=== PATIENT | male | born 1975 | race Caucasian/White ===

== ENCOUNTER → 2021-05-22 | Day surgery (SDC) | payer BC | LOC: MSO 07:01 | DX: Z12.11 Encounter for screening for malignant neoplasm of colon (principal); D12.5 Benign neoplasm of sigmoid colon; K57.30 Diverticulosis of large intestine without perforation or abscess without bleeding; F17.210 Nicotine dependence, cigarettes, uncomplicated | CPT/HCPCS: 00811; J2704; J7120 ==

== ENCOUNTER 2021-09-17 17:00 | Emergency (ER) | payer BC ==
[~2021-09-17] VITALS: Ht 172.7 cm; Wt 125.5 kg
[2021-09-17 17:30] VITALS: BP 105/69
[2021-09-17] MEDS ORDERED: CORTISPORIN OTI10 M2 OT (17:51)
[2021-09-17] MEDS ORDERED: TOPIRAMATE200 MG PO (17:51)
[2021-09-17] MEDS ORDERED: AMOXICILLIN AND1 TA2 PO (17:52)
[2021-09-17] MEDS ORDERED: RIZATRIPTAN BEN10 MG PO (17:52)
[2021-09-17] MEDS ORDERED: PREDNISONE10 MG PO (17:52)
[2021-09-17] MEDS ORDERED: PANTOPRAZOLE SO40 MG PO (17:52)
[2021-09-17] MEDS ORDERED: GLUCOPHAGE PO (17:53)
[2021-09-17] MEDS ORDERED: PRAVASTATIN SOD10 MG PO (17:53)
[2021-09-17] MEDS ORDERED: TIZANIDINE HYDRO4 MG PO (17:53)
[2021-09-17] MEDS ORDERED: WELLBUTRIN SR150 M2 PO (17:53)
[2021-09-17] MEDS ORDERED: TRIAMCINOLONE AC0.13 TP (17:53)
[2021-09-17] MEDS ORDERED: VARENICLINE TART1 MG PO (17:54)
== END 2021-09-17 18:41 ==
LOC: ED 17:00
DX: H92.01 Otalgia, right ear (principal)